=== PATIENT | female | born 1990 | race Caucasian/White ===

== ENCOUNTER 2022-12-08 13:50 | Emergency (ER) | payer MEDICAID ==
[~2022-12-08] VITALS: Ht 162.6 cm; Wt 81.6 kg
[2022-12-08] MEDS ORDERED: AMPH15TA2 PO (14:06)
--- NOTE | 2022-12-08 14:29 | NUR ---
seen and examined by
[2022-12-08] MEDS ORDERED: ACETAMINOPHEN 325 MG TABLET ONE (14:38)
[2022-12-08] MEDS ORDERED: CEFEPIME HCL 2 G in IV DEXTROSE 5% 100 ML IV ONE (14:45)
[2022-12-08] MEDS ORDERED: ACETAMINOPHEN 325 MG TABLET PO ONE (14:45)
--- NOTE | 2022-12-08 14:46 | NUR ---
PT WAS D/C'd TO HOME. D/C INSTRUCTIONS GIVEN TO THE PT BY DR HOOVER.
[2022-12-08 14:48] VITALS: BP 139/68
== END 2022-12-08 14:49 | disposition home or self-care (01) ==
LOC: ER 13:50
DX: R21 Rash and other nonspecific skin eruption (principal); J45.909 Unspecified asthma, uncomplicated; Z79.899 Other long term (current) drug therapy
CPT/HCPCS: A4663; J0692